=== PATIENT | male | born 1990 | race Caucasian/White ===

== ENCOUNTER 2017-08-28 18:59 | Emergency (ER) | payer OTHER ==
[~2017-08-28] VITALS: Ht 180.3 cm; Wt 88.5 kg
[2017-08-28] MEDS ORDERED: ZPAK PO (19:33)
[2017-08-28] MEDS ORDERED: MEDROLDOSEPACK PO (19:33)
[2017-08-28 19:59] VITALS: BP 115/66
== END 2017-08-28 20:51 | disposition home or self-care (01) ==
LOC: M.ERS 18:59
DX: J02.9 Acute pharyngitis, unspecified (principal)

== ENCOUNTER 2019-02-11 21:34 | Emergency (ER) | payer OTHER ==
[~2019-02-11] VITALS: Ht 175.3 cm; Wt 83.9 kg
[~2019-02-11 21:34] MED LIST: MEDROLDOSEPACK PO; ZPAK PO
[2019-02-11] MEDS ORDERED: NOHOMEMEDICATIONS (21:48)
[2019-02-11 21:52] LABS: URINE BILIRUBIN NEGATIVE (Negative); URINE BLOOD NEGATIVE (Negative); URINE CLARITY CLEAR; URINE COLOR YELLOW; URINE GLUCOSE-RANDOM NEGATIVE (Negative); URINE KETONES NEGATIVE (Negative); URINE LEUKOCYTES-REFLEX NEGATIVE (Negative); URINE NITRITE-REFLEX NEGATIVE (Negative); URINE PROTEIN NEGATIVE (Negative); URINE UROBILINOGEN 0.2 E.U./dl (0.2-1.0)
[2019-02-11 22:12] LABS: HEMATOCRIT 41.3 % (42.0-52.0); HEMOGLOBIN 14.1 gm/dL (14.0-18.0); RBC 4.78 mil/uL (4.50-6.00)
[2019-02-11 22:14] LABS: ABSOLUTE BASOPHILS 0.1 thou/uL (0.0-0.2); ABSOLUTE EOSINOPHILS 0.4 thou/uL (0.0-0.7); ABSOLUTE LYMPHOCYTES 2.9 thou/uL (0.8-5.3); ABSOLUTE MONOCYTES 1.2 thou/uL (0.0-1.2); ABSOLUTE NEUTROPHILS 8.8 thou/uL (1.6-8.1); EOSINOPHILS 2.8 %; LYMPHOCYTES 21.8 %; MCH 29.6 pg (26.0-34.0); MCHC 34.2 g/dL (28.0-37.0); MCV 86.5 fL (80.0-100.0); MONOCYTES 8.8 %; MPV 8.9 fl. (7.2-11.1); NUCLEATED RBCS 0 /100WBC; PLATELET COUNT* 314 thou/uL (150-400); POLYS 65.6 %; RDW-CV 13.2 % (10.5-14.5); WBC 13.4 thou/uL (4.0-11.0)
[2019-02-11 22:19] LABS: CALCIUM 9.2 mg/dL (8.5-10.1); CREATININE 1.1 mg/dL (0.6-1.3); POTASSIUM 4.3 mmol/L (3.5-5.1)
[2019-02-11 22:24] LABS: ALBUMIN 3.5 g/dL (3.4-5.0); TOTAL BILIRUBIN 0.4 mg/dL (<0.1-1.0); TOTAL PROTEIN 7.7 g/dL (6.4-8.2)
[2019-02-11] MEDS ORDERED: NORCO 5-325 TA1 EAC1 PO (23:13)
[2019-02-11] MEDS ORDERED: DOXYCYCLINE 10100 MG PO (23:13)
[2019-02-11 23:20] VITALS: BP 149/69
== END 2019-02-11 23:22 | disposition home or self-care (01) ==
LOC: M.ERS 21:34
PROVIDERS: Emergency Medicine Emergency Medical Services
DX: N45.3 Epididymo-orchitis (principal)